=== PATIENT | male | born 1935 | race Caucasian/White ===

== ENCOUNTER 2016-06-30 05:44 | Inpatient (IN) ==
[2016-06-30] MEDS ORDERED: ONDANSETRON 4 MG/2 ML VIAL IV STA (06:05)
[2016-06-30] MEDS ORDERED: ALUM/MAG/SIMETH/LIDO VISC 1:1 30 ML BOTTLE PO STA (06:05)
[2016-06-30] MEDS ORDERED: METOPROLOL TARTRATE 5 MG/5 ML VIAL IV STA (06:05)
[2016-06-30] MEDS ORDERED: NITROGLYCERIN SL 0.4 MG TABLET SL PRN ×2 (06:05→15:03)
[2016-06-30] MEDS ORDERED: MORPHINE 2 MG/1 ML SYRINGE IV STA (06:05)
[2016-06-30] MEDS ORDERED: ENOXAPARIN 100 MG/ML SYRINGE SUBCUT STA (06:05)
[2016-06-30] MEDS ORDERED: NITROGLYCERIN 2% OINT 1 INCH/GM PACK TOP STA (06:05)
[2016-06-30] MEDS ORDERED: ASPIRIN 325 MG TABLET PO STA (06:05)
[2016-06-30] MEDS ORDERED: VECURONIUM 10 MG VIAL IV ONE (06:14)
[2016-06-30 06:15] LABS: Basophils % 0.4 % (0.0-0.8); Eosinophils # 0.5 10*3/uL (0.0-0.87); Eosinophils % 6.4 % (0.00-10.9); Hematocrit 48.8 VOL% (42.0-52.0); Hemoglobin 16.1 GM/DL (14.0-18.0); Immature Granulocytes % 0.5 %; Immature Granulocytes Absolute 0.04 #; Lymphocytes # 1.7 10*3/uL (1.4-4.0); Lymphocytes % 20.2 % (21.2-54.2); Mean Corpuscular Hemoglobin 29 PG (27-34); Mean Corpuscular Volume 88.6 FL (87-102); Monocytes # 0.8 10*3/uL (0.11-0.8); Monocytes % 8.9 % (1.7-12.7); Neutrophils # 5.3 10*3/uL (1.4-7.4); Neutrophils % 63.6 % (38.7-73.9); Platelet Count 156 T/CUMM (130-400); Red Blood Count 5.51 MC/CUMM (3.8-5.5); Red Cell Distribution Width 13.7 % (9.3-17.3); White Blood Count 8.4 T/CUMM (4-12)
--- NOTE | 2016-06-30 06:23 | Emergency Department Note ---
Татьяна Briceno Brittany, am scribing for, and in the presence of, Julian Randall MD 06: 13. Tonia Briceno James D, MD, personally performed the services described in this documentation, ascribed by Mayra Vaz in my presence, and it is both accurate and complete 621 . Arrival - Arrival Chief Complaint: Chest Pain Stated Complaint: chest pain ED Nursing Triage Note: Pt to triage via wheelchair with c/o chest pain that started this morning and woke him up from his sleep. Pt also c/o sob and nausea. Pt took nitro sublingual before coming to ER states it did relieve the pain a little. Mode of Arrival: Wheelchair Limitations: No Limitations Source: Patient, Family Time Seen by Provider: 06/30/16 06:01 - History of Present Illness HPI Narrative: This is a 80 y/o white male,who presents to the ED for further evulation of CP which started earlier this morning. He localizes the pain to the mid sternum. He reports he is slightly nauseated and diaphoretic. He reports he is SOB with the chest pain. He denies any radiation of the chest pain. He reports he took Nitro which helped. Pt denies any hematochezia, hematemesis, or melena. Pt has no other complaints/pain in the ED at this time. Pt has a PMHx of CAD, HI, diabetes, HTN, dyslipidemia, GERD, kidney stones, and cancer. Pt has had a femoral popliteal bypass graft, cardiac cath, cardiac surgery, eye surgery, colonoscopy, and EGD. Pt has a family medical Hx of cancer and heart disease. Pt is a former smoker. He states his last heart cath was 5 months ago. Onset (ago): minute(s) (Started earlier this morning) Consistency: constant Severity: moderate Allergies/Adverse Reactions: Allergies Allergy/AdvReac Type Severity Reaction Status Date / Time No Known Allergies Allergy Verified 06/30/16 05:51 Home Medications: Home Medications Medication Instructions Recorded Confirmed Type Amitriptyline [Elavil] 25 mg PO BEDTIME 05/20/15 06/30/16 History Aspirin EC Tab 81 mg PO DAILY 05/20/15 06/30/16 History Ergocalciferol (Vitamin D2) 2,000 unit PO BID 05/20/15 06/30/16 History [Vitamin D2] Magnesium Chloride [Slow Mag] 64 mg PO BID 05/20/15 06/30/16 History Pantoprazole Tab [Protonix Tab] 40 mg PO BID 05/20/15 06/30/16 History Potassium Chloride 10 meq PO DAILY 05/20/15 06/30/16 History Rosuvastatin [Crestor] 10 mg PO BEDTIME 05/20/15 06/30/16 History Ticagrelor [Brilinta] 90 mg PO BID 05/20/15 06/30/16 History Isosorbide Mononitrate [Imdur] 15 mg PO DAILY #30 tablet 12/26/15 06/30/16 Rx Nitroglycerin Sl Tab [Nitrostat] 0.4 mg SL Q5M PRN #30 tablet 12/26/15 06/30/16 Rx Review of System - Review of System 12 point system: reviewed and no additional remarkable complaints except as stated - Review of System Constitutional: Present: diaphoresis Cardiovascular: Present: chest pain, other (Dyspnea) Gastrointestinal: Present: nausea. Absent: hematemesis, melena, hematochezia Medical,Surgical,& Family Hx - Medical History Cardio: History of: CAD, Hypertension, HI, Cardiovascular Problems No history of: Aneurysm, Cardiac Dysrhythmia, Cerebrovascular Disease, Congenital Heart Disease, CHF, Pacemaker, PVD, Valvular Heart Disease Psychological: No history of: Anxiety Disorders, ADHD, Behavior Problems, Bipolar Disorder, Depression, Previous Suicide Attempt, Psychiatric/Substance Abuse Tx, Schizophrenia, Violent Behavior, Psychiatric Problems Neurology: No history of: Brain Aneurysm, Cerebral Hemorrhage, Cerebrovascular Accident , Cerebral Palsy, Dementia, Migraine, Multiple Sclerosis, Parkinson's Disease, Peripheral Neuropathy, Seizures, TIA, Vertigo, Neurologocal Cancer HEENT: History of: Eye Problem (cataracts removed on 05/21/15), Dental Problems ( dentures- upper and lower) No history of: Ear Problem, Glaucoma, Oral Cancer, HEENT Problems Endocrine: History of: Dyslipidemia No history of: Adrenal Disease, Diabetes Mellitus (IDDM), Diabetes Mellitus ( NIDDM), Thyroid Disorder, Endocrine Cancer, Endocrine Problems Rheumatology: No history of;: Fibromyalgia, Gout, Myasthenia Gravis, Psoriasis, Rheumatoid Arthritis, Sjogrens, Systemic Lupus Erythematosus, Rheumatological Problems Respiratory: History of: Intubation (during bypass surgery) No history of: Asthma, Bronchitis, COPD, Obstructive Sleep Apnea, Pulmonary Embolism, Pulmonary Hypertension, Pneumonia, Lung Cancer, Respiratory Problems Renal: No history of: Renal (Kidney) Cancer, Dialysis, Renal Failure, Renal Problems Genitourinary: History of: Kidney Stones No history of: Bladder Problem, Prostate Problems, Recurring Urinary Tract Infections, Genitourinary Cancer, Problems Gastrointestinal: History of: GERD No history of: Bowel Obstruction, Clostridium Difficile, Crohn's Disease, Diverticulitis/ Diverticulosis, Esophageal Varices, Gastrointestinal Bleed, Hemorrhoids, Hematochezia, Hepatitis, Liver Problems, Pancreatitis, Polyps, Ulcerative Colitis, Gastrointestinal Cancer, GI Problems Musculoskeletal: No history of: Amputation, Back/Neck Problems, Degenerative Disk Disease, Herniated Disk, Osteoporosis, Musculoskeletal Cancer, Musculoskeletal Problems Hematology: No history of: Anemia, Blood Transfusion Reaction, Bleeding Problems, Clotting Problems, Sickle Cell Disease, Hematologic Cancer, Blood Disorders Reproductive: No histroy: Penile Disorder, Sexually Transmitted Disease, Reproductive Cancer, Reproductive Problems Other: History of: Cancer (area removed from chest in 2012) No history of: Anesthesia Reactions, Anaphylaxis, Eczema, HIV, Malignant Hyperthermia, MRSA, Vancomycin-Resistant Enterococci, Skin Problems, Miscellaneous Medical Problems - Surgical History Cardiac Surgeries: Sugical HX of: Femoral-Popliteal Bypass Graft (1997), Cardiac Catheterization, Cardiac Surgery Patient Denies: Carotid Endarterectomy, Internal Defibrillator, Vascular Access Devices Thoracic Surgeries: Patient denies;: Kidney (Renal Surgery), Lithotripsy, Nephrectomy, Organ Transplant, Lobectomy Neurologic Surgeries: Patient denies: Brain Aneurysm, Cerebral Hemorrhage, Neurologic Surgery HEENT Surgeries: Surgical HX of: Eye Surgery (cataracts removed bilat) Patient denies: Carotid Endarterectomy, Thyroid Surgery, Tonsilectomy & Adenoidectomy Abdominal Surgeries: Surgical HX of: Colonoscopy (3-4 polyps removed), EGD Patient denies: Abdominal Surgery, Appendectomy, Cholecystectomy, Gastric Bypass Surgery, Hernia Repair, Splenectomy Reproductive Surgeries: Patient denies;: Breast Surgery, Cystoscopy, Genitourinary Surgery, Prostate Surgery, Vasectomy Orthopedic Surgeries: Patient denies;: Implanted Devices, Orthopedic Surgery, Spinal Surgery, Total Hip Replacement, Total Knee Replacement - Family History Family History: Reports;: Family Cancer (MOTHER), Family Heart Disease (FATHER) - Social History Smoking Status: Former smoker Frequency of Alcohol Use: None Type of Drug Use: None Exam Vital Signs: Vital Signs Temperature 97.9 F 06/30/16 05:55 Pulse Rate 94 H 06/30/16 05:55 Respiratory Rate 18 06/30/16 05:55 Blood Pressure 139/99 06/30/16 05:55 O2 Sat by Pulse Oximetry 91 L 06/30/16 05:46 Course - Consultations Consultation #1: Discussed with Dr. Best. Patient will be admitted to his service. Initial orders written for him. Dr. Best will assume care upon arrival to [facility]. Time: 06:46 Results - Labs CBC & BMP: 06/30/16 05:58 06/30/16 05:58 Lab Results: I have reviewed the patients labs Labs: Laboratory Tests 06/30/16 05:58 INR 1.0 Laboratory Tests 06/30/16 05:58 Troponin I < 0.015 - EKG EKG results: interpreted by ERMD - Impressions EKG: Normal sinus rhythm with a rate of 94, left anterior fascicular block, nonspecific ST-T wave changes, left axis deviation - Diagnostic Findings Procedure: Chest x-ray: image reviewed by me (Increased pulmonary markings bilaterally. Small pleural effusions. Old median sternotomy) Disposition Clinical Impression: Unstable angina, Coronary artery disease, Pulmonary fibrosis, Carotid artery disease Case discussed with: patient, patient's family Disposition: Still a Patient Condition: Stable Time of Disposition: 07:07
[2016-06-30 06:24] LABS: PT Patient Result 10.1 SECS; Partial Thromboplastin Time 27.1 SECS (0-40)
[2016-06-30] MEDS ORDERED: ENOXAPARIN 100 MG/ML SYRINGE SUBCUT ONE (06:24)
[2016-06-30] MEDS ORDERED: ALUM/MAG/SIMETH/LIDO VISC 1:1 30 ML BOTTLE PO ONE (06:25)
[2016-06-30] MEDS ORDERED: METOPROLOL TARTRATE 5 MG/5 ML VIAL IV ONE (06:25)
[2016-06-30] MEDS ORDERED: ONDANSETRON 4 MG/2 ML VIAL ONE (06:25)
[2016-06-30] MEDS ORDERED: MORPHINE 2 MG/1 ML SYRINGE ONE (06:25)
[2016-06-30] MEDS ORDERED: NITROGLYCERIN 2% OINT 1 INCH/GM PACK TOP ONE (06:25)
[2016-06-30] MEDS ORDERED: ASPIRIN 325 MG TABLET ONE (06:25)
[2016-06-30] MEDS ORDERED: MAGNESIUM SULF RIDER 2 GM in PREMIX 1 EACH IV PRN ×2 (06:36→13:31)
[2016-06-30] MEDS ORDERED: MAGNESIUM SULF RIDER 4 GM in PREMIX 1 EACH IV PRN (06:36)
[2016-06-30 06:50] LABS: Albumin 3.9 G/DL (3.4-5.0); Bilirubin,Total 0.9 MG/DL (0.2-1.0); Calcium 8.6 MG/DL (8.5-10.1); Osmolality,Calculated 283.3 MOS/KG (273-304); Total Protein 6.7 G/DL (6.4-8.3)
--- NOTE | 2016-06-30 07:14 | XRay Report ---
Referring Physician: Julian Randall Exam: XR chest 1V portable Date: June 30, 2016 at 6:07 AM Reason: Chest pain Comparison: Chest one view portable December 25, 2015, CT chest high-resolution July 07, 2015 Findings: There is borderline cardiomegaly, and the patient is status post sternotomy. There are scattered opacities within the mid and lower lung zones bilaterally. This is concerning for fibrosis/interstitial lung disease, considering the appearance on the previous CT chest. However, superimposed pneumonia or pulmonary edema cannot be excluded. No pneumothorax is identified, but there may be minimal bilateral pleural fluid. The osseous structures appear stable. No acute osseous process is seen. Impression: There are scattered opacities within the mid and lower lung zones bilaterally. Similar findings are seen on previous studies, and this is concerning for fibrosis/interstitial lung disease. However, superimposed pulmonary edema or pneumonia cannot be excluded. PROCEDURE INTERPRETED AT [facility] DEPARTMENT OF RADIOLOGY Final Report Signed by: Dr. Micaela Piedra
--- NOTE | 2016-06-30 08:41 | EKG Report ---
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
[2016-06-30] MEDS: SODIUM CHLORIDE 0.9% 1,000 ML IV SCH (09:00)
--- NOTE | 2016-06-30 09:16 | EKG Report ---
Stationary ECG Study 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
--- NOTE | 2016-06-30 12:25 | EKG Report ---
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
[2016-06-30] MEDS ORDERED: DIAZEPAM 5 MG TABLET PO ONE (13:31)
[2016-06-30] MEDS ORDERED: diphenhydrAMINE CAP 25 MG CAPSULE PO ONE (13:31)
[2016-06-30] MEDS ORDERED: POTASSIUM CHLORIDE RIDER 10 MEQ in PREMIX 1 EACH IV PRN (13:31)
--- NOTE | 2016-06-30 13:39 | Cardiology History & Physical ---
Mikel Briceno Vanessa, RN, am scribing for, and in the presence of, Layton Best MD 13:36. Assessment and Plan - Time spent with patient Time spent with patient: Greater than 30 minutes (Due to assessment, planning, documentation, and medication review) (1) Unstable angina Status: Acute Assessment and plan: We will aggressively manage his cornea artery disease both medically and with cardiac catheterization for definitive coronary artery assessment and possible revascularization. 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 XAVIER BEST PCP: Mr. Cast is a 80 year old white male past medical history of hypertension, diabetes, hyperlipidemia, CAD, CABG 4, GERD, and depression. He is well-known to me. He has a history of multiple episodes of unstable angina requiring percutaneous coronary intervention since his bypass surgery. Patient reports that couple nights ago he had some chest discomfort symptoms similar to his previous angina. The following day he felt better. Then last night he had worse symptoms. There was a substernal chest pressure. The symptoms were moderate in severity. He had some associated diaphoresis and nausea. He has had some dyspnea as well. He denies any palpitations or syncope. There was no radiation of the symptoms. He did use nitroglycerin which helped his symptoms. Since arrival in the hospital he is continue to have episodic mild low-grade substernal chest discomfort. He has not had any orthopnea or PND, though his says when they first picked him up to pulse oximetry on arrival in the hospital his oxygen saturations were less than 90%. This immediately improved with supplemental oxygen. He has not had any long trips, immobilization, or peripheral edema suggestive of deep venous thrombosis. In light of his extensive cardiac history and persistent/recurrent symptoms, think would be best to admit him, and work him up with cardiac catheterization. His case was discussed today with Dr. Randall. Current Medications Enoxaparin Sodium (Lovenox) 90 mg SUBCUT Q12H TAMMIE Magnesium Sulfate 2 gm/ Premix 50 mls @ 25 mls/hr IV .PER PROTOCOL PRN; Protocol PRN Reason: Per Protocol Magnesium Sulfate 4 gm/ Premix 100 mls @ 25 mls/hr IV .PER PROTOCOL PRN; Protocol PRN Reason: Per Protocol Sodium Chloride (Ns) 1,000 mls @ 50 mls/hr IV .Q20H TAMMIE Last Admin: 06/30/16 09:00 Dose: 50 mls/hr Nitroglycerin (Nitrostat) 0.4 mg SL Q5M PRN PRN Reason: Chest Pain Home Medications Medication Instructions Recorded Confirmed Type Amitriptyline [Elavil] 25 mg PO BEDTIME 05/20/15 06/30/16 History Aspirin EC Tab 81 mg PO DAILY 05/20/15 06/30/16 History Ergocalciferol (Vitamin D2) 2,000 unit PO BID 05/20/15 06/30/16 History [Vitamin D2] Magnesium Chloride [Slow Mag] 64 mg PO BID 05/20/15 06/30/16 History Pantoprazole Tab [Protonix Tab] 40 mg PO BID 05/20/15 06/30/16 History Potassium Chloride 10 meq PO DAILY 05/20/15 06/30/16 History Rosuvastatin [Crestor] 10 mg PO BEDTIME 05/20/15 06/30/16 History Ticagrelor [Brilinta] 90 mg PO BID 05/20/15 06/30/16 History Nitroglycerin Sl Tab [Nitrostat] 0.4 mg SL Q5M PRN #30 tablet 12/26/15 06/30/16 Rx Albuterol Sulfate [Ventolin HFA] 2 puff INH Q6H PRN 06/30/16 06/30/16 History Isosorbide Mononitrate [Imdur] 7.5 mg PO DAILY 06/30/16 06/30/16 History Nintedanib Esylate [Ofev] 150 mg PO BID 06/30/16 06/30/16 History Sucralfate Liquid [Carafate Liquid] 1 gm PO TIDAC 06/30/16 06/30/16 History Allergies Allergy/AdvReac Type Severity Reaction Status Date / Time No Known Allergies Allergy Verified 06/30/16 05:51 12 point system: reviewed and no additional remarkable complaints except as stated Medical,Surgical,& Family Hx - Medical History Cardio: History of: CAD, Hypertension, OR, Cardiovascular Problems No history of: Aneurysm, Cardiac Dysrhythmia, Cerebrovascular Disease, Congenital Heart Disease, CHF, Pacemaker, PVD, Valvular Heart Disease Psychological: No history of: Anxiety Disorders, ADHD, Behavior Problems, Bipolar Disorder, Depression, Previous Suicide Attempt, Psychiatric/Substance Abuse Tx, Schizophrenia, Violent Behavior, Psychiatric Problems Neurology: No history of: Brain Aneurysm, Cerebral Hemorrhage, Cerebrovascular Accident , Cerebral Palsy, Dementia, Migraine, Multiple Sclerosis, Parkinson's Disease, Peripheral Neuropathy, Seizures, TIA, Vertigo, Neurologocal Cancer HEENT: History of: Eye Problem (cataracts removed on 05/21/15), Dental Problems ( dentures- upper and lower) No history of: Ear Problem, Glaucoma, Oral Cancer, HEENT Problems Endocrine: History of: Dyslipidemia No history of: Adrenal Disease, Diabetes Mellitus (IDDM), Diabetes Mellitus ( NIDDM), Thyroid Disorder, Endocrine Cancer, Endocrine Problems Rheumatology: No history of;: Fibromyalgia, Gout, Myasthenia Gravis, Psoriasis, Rheumatoid Arthritis, Sjogrens, Systemic Lupus Erythematosus, Rheumatological Problems Respiratory: History of: Intubation (during bypass surgery) No history of: Asthma, Bronchitis, COPD, Obstructive Sleep Apnea, Pulmonary Embolism, Pulmonary Hypertension, Pneumonia, Lung Cancer, Respiratory Problems Renal: No history of: Renal (Kidney) Cancer, Dialysis, Renal Failure, Renal Problems Genitourinary: History of: Kidney Stones No history of: Bladder Problem, Prostate Problems, Recurring Urinary Tract Infections, Genitourinary Cancer, Problems Gastrointestinal: History of: GERD No history of: Bowel Obstruction, Clostridium Difficile, Crohn's Disease, Diverticulitis/ Diverticulosis, Esophageal Varices, Gastrointestinal Bleed, Hemorrhoids, Hematochezia, Hepatitis, Liver Problems, Pancreatitis, Polyps, Ulcerative Colitis, Gastrointestinal Cancer, GI Problems Musculoskeletal: No history of: Amputation, Back/Neck Problems, Degenerative Disk Disease, Herniated Disk, Osteoporosis, Musculoskeletal Cancer, Musculoskeletal Problems Hematology: No history of: Anemia, Blood Transfusion Reaction, Bleeding Problems, Clotting Problems, Sickle Cell Disease, Hematologic Cancer, Blood Disorders Reproductive: No histroy: Penile Disorder, Sexually Transmitted Disease, Reproductive Cancer, Reproductive Problems Other: History of: Cancer (area removed from chest in 2012) No history of: Anesthesia Reactions, Anaphylaxis, Eczema, HIV, Malignant Hyperthermia, MRSA, Vancomycin-Resistant Enterococci, Skin Problems, Miscellaneous Medical Problems - Surgical History Cardiac Surgeries: Sugical HX of: Femoral-Popliteal Bypass Graft (1997), Cardiac Catheterization, Cardiac Surgery Patient Denies: Carotid Endarterectomy, Internal Defibrillator, Vascular Access Devices Thoracic Surgeries: Patient denies;: Kidney (Renal Surgery), Lithotripsy, Nephrectomy, Organ Transplant, Lobectomy Neurologic Surgeries: Patient denies: Brain Aneurysm, Cerebral Hemorrhage, Neurologic Surgery HEENT Surgeries: Surgical HX of: Eye Surgery (cataracts removed bilat) Patient denies: Carotid Endarterectomy, Thyroid Surgery, Tonsilectomy & Adenoidectomy Abdominal Surgeries: Surgical HX of: Colonoscopy (3-4 polyps removed), EGD Patient denies: Abdominal Surgery, Appendectomy, Cholecystectomy, Gastric Bypass Surgery, Hernia Repair, Splenectomy Reproductive Surgeries: Patient denies;: Breast Surgery, Cystoscopy, Genitourinary Surgery, Prostate Surgery, Vasectomy Orthopedic Surgeries: Patient denies;: Implanted Devices, Orthopedic Surgery, Spinal Surgery, Total Hip Replacement, Total Knee Replacement - Family History Family History: Reports;: Family Cancer (MOTHER), Family Heart Disease (FATHER) - Social History Smoking Status: Former smoker Frequency of Alcohol Use: None Type of Drug Use: None Cardiology Physical Exam - Constitutional Vitals: Vital Signs Temp Pulse Resp BP Pulse Ox 98.0 F 82 16 110/75 98 06/30/16 10:04 06/30/16 10:04 06/30/16 10:04 06/30/16 10:04 06/30/16 10:04 Intake and Output 06/29/16 06/30/16 06/30/16 22:59 06:59 14:59 Other: Weight 188 lb 14.4 oz Patient Weight 07/01/16 06:59 Weight 188 lb 14.4 oz Exam: General: Appears well developed, well nourished, no apparent distress HEENT: Normocephalic, atraumatic Neck: Supple Neck, Midline Trachea, No JVD Cardiac: Reg Rate and Rhythm, 2/6 systolic Murmur, no gallop, no rub Lungs: Clear to auscultation, No Wheeze, Rales, Rhonchi Neuro: Cranial Nerve 2-12 Intact, Motor Function Grossly Intact Abdomen: Soft, Active Bowel Sounds, No Masses, No Pulsations/Bruits Skin: Normal color, no rash Extremities: No Clubbing, No Cyanosis, No Edema, Normal Upper Extr. Pulses Musculoskeletal: No acute abnormality noted Psychiatric: The patient does not appear to be anxious or depressed Result/EKG - Labs CBC & BMP: 06/30/16 05:58 06/30/16 05:58 Lab Results: I have reviewed the past 24 hour labs Labs: Laboratory Results - last 24 hr 06/30/16 09:18 Troponin I < 0.015 - Diagnostic Findings Procedure: Chest x-ray: image reviewed by me, report reviewed by me - EKG EKG results: interpreted by me I, Layton Best MD, personally performed the services described in this documentation, ascribed by Shirley Morin RN in my presence, and it is both accurate and complete 338 .
[2016-06-30] MEDS ORDERED: LIDOCAINE 1% 20 ML VIAL ONE (13:40)
[2016-06-30] MEDS ORDERED: HEPARIN/NACL 0.9% 2 UNITS/ML 1,000 ML IV ONE (13:40)
[2016-06-30 14:00] LABS: Apearance,Urine CLEAR (Clear); Bilirubin,Urine Negative (Negative); Blood, Urine Small mg/dL (Negative); Glucose,Urine (UA) Negative (Negative); Ketones,Urine Negative (Negative); Mucus,Urine Occasional /LPF (Occasional); Nitrite,Urine Negative (Negative); Protein,Urine Negative; RBC,Urine 4 /HPF (0-4); Urine Color Yellow (Yellow); Urine Specific Gravity 1.011 (1.001-1.035); Urine Urobilinogen < 2.0 EU/DL (0.2-1.0); WBC,Urine 15 /HPF (0-6)
[2016-06-30] MEDS ORDERED: HYDROmorphone 2 MG/1 ML VIAL ONE (14:15)
[2016-06-30] MEDS ORDERED: MIDAZOLAM 2 MG/2 ML VIAL ONE (14:15)
[2016-06-30] MEDS ORDERED: TICAGRELOR 90 MG TABLET ONE (14:39)
--- NOTE | 2016-06-30 15:07 | Cardiac Catheterization ---
Date of Procedure:: 06/30/16 Procedure: CLINICAL SUMMARY: The patient has known multivessel coronary artery disease and presented with unstable angina symptoms. He is being taken for cardiac catheterization for definitive coronary artery assessment and possible revascularization. PROCEDURES PERFORMED: 1. Right femoral percutaneous arteriotomy 2. Resting hemodynamics. 3. Coronary arteriography. 4. Selective left internal mammary coronary artery bypass graft angiography. 5. Right femoral arteriogram. 6. Angio-Seal closure of the right femoral artery. 7. Percutaneous coronary intervention to the right posterolateral branch with a 2.5 x 8 mm Synergy drug-eluting stent. DESCRIPTION OF PROCEDURE: After obtaining informed consent, the patient was brought to the cardiac catheterization lab where the right groin was prepped and draped in the usual sterile manner. Using IV sedation, local anesthesia, and Modified Seldinger technique, a needle was placed in the right femoral artery and a sheath was positioned without difficulty. A left coronary catheter was advanced over a guidewire under fluoroscopic control to the ascending aorta where angiograms of the left coronary artery were undertaken in multiple views. After adequate angiograms, this catheter was withdrawn and a right coronary catheter was advanced over a guidewire under fluoroscopic control to the ascending aorta with angiograms of the RCA were undertaken in numerous projections. After angiography of the right coronary artery this catheter was used to perform left internal mammary to left anterior descending coronary artery angiogram. After the diagnostic portion of the case was completed with proceeded directly to percutaneous coronary intervention. We engaged the right coronary artery with a JR4 interventional guide and passed PT Graphix wire beyond the area of stenosis in the distal vessel. We then performed balloon angioplasty with a 2.5 x 8 mm trach antiplastic balloon. We then placed a 2.5 x 8 mm Synergy drug-eluting stent into the right posterolateral branch at the site of high-grade stenosis. Follow-up angiography showed significant improvement with no significant residual stenosis. After the intervention, a right femoral arteriogram was performed showing adequate sheath placement for closure device deployment. The sheath was then removed and an Angio-Seal device was used to obtain hemostasis. The patient was transferred back to the room having suffered no immediate complications. HEMODYNAMICS: See the accompanying data sheet. CORONARY ARTERIOGRAPHY: LEFT MAIN: The left main coronary artery is a large caliber vessel, which at this time only gives rise to the left circumflex and obtuse marginal branch, as the left anterior descending coronary artery is completely occluded at its origin. The left main coronary artery has no significant obstructive disease. LEFT CIRCUMFLEX: The left circumflex coronary artery is a moderate size vessel which gives off a moderate size obtuse marginal branch. There is a stent in the proximal segment of the circumflex coronary artery which is widely patent. LEFT ANTERIOR DESCENDING: The left anterior descending artery is occluded at its origin from the left main coronary artery. The distal vessel is seen filling via patent left internal mammary arterial graft. There is moderate diffuse disease in the [place] left anterior setting coronary artery. RIGHT CORONARY ARTERY: The right coronary artery is a moderate size vessel which gives off posterior descending artery and a posterolateral system. There is diffuse [id number] luminal irregularities throughout the right coronary artery. There are multiple stents present throughout the right coronary artery. In the distal right posterolateral branch there is a focal stenosis of 80-90%. PERIPHERAL ARTERIOGRAPHY: Right femoral arteriogram shows a normal right iliofemoral artery with adequate sheath placement for closure device deployment. IMPRESSIONS: 1. Successful percutaneous coronary intervention to the right posterolateral branch with a 2.5 x 8 mm Synergy drug-eluting stent. 2. Severe [place] three-vessel coronary artery disease in other distributions. However, I don't see any other high-grade disease that would be a good target for revascularization. 3. Patent left internal mammary artery to left anterior descending coronary artery bypass graft. 4. 2 saphenous vein grafts are known to be occluded. 5. Normal right iliofemoral artery with successful and distal closure of this vessel. PLAN: Patient will transferred back to his room for recovery. He did well with percutaneous intervention on his right posterolateral branch. We will continue aggressive medical management as well. If he does well overnight he could possibly be discharged home tomorrow. Anesthesia: minimal conscious sedation Surgeon / Physician: Layton Best Estimated blood loss: minimal Condition: stable Disposition: floor - Medications / Follow-up
[2016-06-30] MEDS ORDERED: ALBUTEROL 2.5 MG/3 ML NEB RESP TX PRN (15:30)
[2016-06-30] MEDS: SUCRALFATE 1 GM/10 ML UDCUP PO SCH (17:28)
[2016-06-30] MEDS: ENOXAPARIN 100 MG/ML SYRINGE SUBCUT SCH (18:26)
[2016-06-30] MEDS: MAGNESIUM CHLORIDE 64 MG TABLET PO SCH (20:51)
[2016-06-30] MEDS: CHOLECALCIFEROL 1,000 UNIT TABLET PO SCH (20:51)
[2016-06-30] MEDS: TICAGRELOR 90 MG TABLET PO SCH (20:51)
[2016-06-30] MEDS: NINTEDANIB ESYLATE 150 MG PO SCH ×2 (20:52→21:04)
[2016-06-30] MEDS: PANTOPRAZOLE 40 MG TABLET PO SCH (20:52)
[2016-06-30] MEDS ORDERED: ROSUVASTATIN 20 MG TABLET PO SCH (21:00)
[2016-06-30] MEDS ORDERED: AMITRIPTYLINE 25 MG TABLET PO SCH (21:00)
[2016-07-01] MEDS: SUCRALFATE 1 GM/10 ML UDCUP PO SCH (06:44)
[2016-07-01] MEDS: SODIUM CHLORIDE 0.9% 1,000 ML IV SCH (06:45)
[2016-07-01] MEDS: ENOXAPARIN 100 MG/ML SYRINGE SUBCUT SCH (06:45)
[2016-07-01 06:50] LABS: Basophils % 0.4 % (0.0-0.8); Eosinophils # 0.5 10*3/uL (0.0-0.87); Eosinophils % 5.8 % (0.00-10.9); Hematocrit 45.2 VOL% (42.0-52.0); Hemoglobin 14.7 GM/DL (14.0-18.0); Immature Granulocytes % 0.4 %; Immature Granulocytes Absolute 0.03 #; Lymphocytes # 0.9 10*3/uL (1.4-4.0); Lymphocytes % 11.7 % (21.2-54.2); Mean Corpuscular HGB Conc 32.5 GM/DL (32-36); Mean Corpuscular Hemoglobin 29 PG (27-34); Mean Corpuscular Volume 89.3 FL (87-102); Mean Platelet Volume 9.2 FL (9.6-12.0); Monocytes # 0.7 10*3/uL (0.11-0.8); Monocytes % 8.3 % (1.7-12.7); Neutrophils # 5.8 10*3/uL (1.4-7.4); Neutrophils % 73.4 % (38.7-73.9); Platelet Count 150 T/CUMM (130-400); Red Blood Count 5.06 MC/CUMM (3.8-5.5); Red Cell Distribution Width 13.5 % (9.3-17.3)
[2016-07-01 07:25] LABS: Blood Urea Nitrogen 11 MG/DL (7-18); Calcium 8.7 MG/DL (8.5-10.1); Glucose 103 MG/DL (74-106); Osmolality,Calculated 277.4 MOS/KG (273-304); Potassium 4.2 MMOL/L (3.5-5.1); Sodium 140 MMOL/L (136-145)
[2016-07-01 07:26] LABS: Troponin I Only 0.135 NG/ML (0.00-0.045)
--- NOTE | 2016-07-01 07:47 | EKG Report ---
Stationary ECG Study [facility] Test Date: 07/01/2016 7:48:24 AM Pat Name: EMELINA JENKINS Department: Room: 544 Gender: M Reserve Operator: YOMI : [id number] Requested by: Fariba Traylor Order Number: [id number] Reading MD: BRUCE KENNY Intervals [place] Rate: 77 P: 76 WI: 194 QRS: -67 QRSD: 112 T: 73 QT: 427 QTc: 459 Interpretive Statements SINUS RHYTHM POOR R-WAVE PROGRESSION LEFT ANTERIOR FASCICULAR BLOCK Electronically Signed On 07-01-16 17:56:47 CDT by BRUCE KENNY [email or web address]
[2016-07-01 08:00] VITALS: BP 132/72
[2016-07-01] MEDS: TICAGRELOR 90 MG TABLET PO SCH (08:51)
[2016-07-01] MEDS: MAGNESIUM CHLORIDE 64 MG TABLET PO SCH (08:51)
[2016-07-01] MEDS: PANTOPRAZOLE 40 MG TABLET PO SCH (08:51)
[2016-07-01] MEDS: CHOLECALCIFEROL 1,000 UNIT TABLET PO SCH (08:51)
[2016-07-01] MEDS: NINTEDANIB ESYLATE 150 MG PO SCH (08:56)
[2016-07-01] MEDS ORDERED: ASPIRIN EC 81 MG TABLET PO SCH (09:00)
[2016-07-01] MEDS ORDERED: POTASSIUM CHLORIDE 10 MEQ TABLET PO SCH (09:00)
[2016-07-01] MEDS ORDERED: ISOSORBIDE MONONITRATE 30 MG TABLET PO SCH (09:00)
--- NOTE | 2016-07-01 10:04 | Discharge Summary ---
I, Shirley Morin RN, am scribing for, and in the presence of, Layton Best MD 10:03. 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 XAVIER BEST Mr. Cast is a 80-year-old white male past medical history of hypertension, diabetes, hyperlipidemia, CAD, CABG 4, GERD, and depression. He is very well known to me. He has had a history of multiple episodes of unstable angina requiring percutaneous coronary intervention since his bypass surgery. Patient presented to the emergency room on the morning of 06/30/16 with complaints that a few days prior to presentation he had some chest discomfort symptoms similar to his previous angina. The evening before presentation and on the morning of, his symptoms worsened. He had substernal chest pressure that was moderate in severity, and it was associated with diaphoresis, nausea, and some dyspnea. Did not have any palpitations or syncope. There was no radiation of his discomfort patient did use nitroglycerin to help relieve his symptoms. After admission to the hospital for observation, he continued to have episodic mild low-grade substernal chest discomfort. He had not experienced any recent or current orthopnea or PND. His twelve-lead EKG was without acute ST segment changes. There was concern due to patient initially having a oxygen saturation a little less than 90% upon arrival to the ER O2 saturation immediately improved with supplemental oxygen. With his extensive cardiac history and persistent/recurrent symptoms, he was taken to cardiac catheterization lab yesterday for definitive coronary artery assessment and possible revascularization. Cardiac catheterization with the following findings: IMPRESSIONS: 1. Successful percutaneous coronary intervention to the right posterolateral branch with a 2.5 x 8 mm Synergy drug-eluting stent. 2. Severe [place] three-vessel coronary artery disease in other distributions. However, I don't see any other high-grade disease that would be a good target for revascularization. 3. Patent left internal mammary artery to left anterior descending coronary artery bypass graft. 4. 2 saphenous vein grafts are known to be occluded. 5. Normal right iliofemoral artery with successful and distal closure of this vessel. PLAN: Patient will transferred back to his room for recovery. He did well with percutaneous intervention on his right posterolateral branch. We will continue aggressive medical management as well. If he does well overnight he could possibly be discharged home tomorrow. Patient is now seen and examined this morning status post left heart catheterization with percutaneous coronary intervention. He has done well overnight without any further chest discomfort, dyspnea, nausea, or other overt anginal complaint. Right groin cath site area is soft without bruise, hematoma, or femoral bruit appreciated. Lower extremity pulses are present and palpable bilaterally. EKG this morning is without acute finding. Labs reviewed. Electrolytes are within acceptable range. Renal function is stable with a creatinine of 0.9 and a GFR of 99. Trivial troponin on this morning's lab work of 0.135, and can be contributed to recent angina with percutaneous coronary intervention. Patient has now reached maximum hospitalization benefit, and he is ready for discharge home. He will be discharged home today. He will be given a follow-up with me in 2 weeks at [facility]. He will also need a BMP, magnesium level, and EKG. He will resume his previously taken home medications. - Time spent with patient Time with patient DS: Greater than 30 minutes (Due to assessment, documentation , and medication reconciliation) Diagnosis - Discharge Diagnosis (1) Unstable angina Status: Resolved (2) CAD (coronary artery disease) Status: Resolved (3) Essential (primary) hypertension Status: Chronic (4) Pulmonary fibrosis Status: Chronic Specialty Discharge - Follow Up or Referrals Follow up with: Layton Best MD [Primary Care Provider] - 2 Weeks (He will need a BMP and magnesium level. He will also need an EKG.) Discharge Plan - Discharge Data Disposition: Disch To Home/Self Care Condition at Discharge: Stable Discharge Diet: heart healthy, low fat, low cholesterol, low salt diet Activity: other (Routine post cardiac cath instruction) Hygiene: may shower Weight Bearing at Discharge: full weight bearing Driving: not for (1 week) Contact your physician if you experience:: fever over 101, Difficulty voiding, Redness or swelling, Nausea/Vomiting, Shortness of breath, Bleeding, pain uncontrolled by pain medications - Discharge Medications Continue Potassium Chloride 10 meq PO DAILY Pantoprazole Tab [Protonix Tab] 40 mg PO BID Ergocalciferol (Vitamin D2) [Vitamin D2] 2,000 unit PO BID Amitriptyline [Elavil] 25 mg PO BEDTIME Rosuvastatin [Crestor] 10 mg PO BEDTIME Magnesium Chloride [Slow Mag] 64 mg PO BID Ticagrelor [Brilinta] 90 mg PO BID Aspirin EC Tab 81 mg PO DAILY Nitroglycerin Sl Tab [Nitrostat] 0.4 mg SL Q5M PRN #30 tablet PRN Reason: Chest Pain Nintedanib Esylate [Ofev] 150 mg PO BID Isosorbide Mononitrate [Imdur] 7.5 mg PO DAILY Sucralfate Liquid [Carafate Liquid] 1 gm PO TIDAC Albuterol Sulfate [Ventolin HFA] 2 puff INH Q6H PRN PRN Reason: Shortness Of Breath/Wheezing - Follow Up or Referral Follow Up: Layton Best MD [Primary Care Provider] - 2 Weeks (He will need a BMP and magnesium level. He will also need an EKG.) - Forms/Instructions Instructions: Angina (DC), Pulmonary Fibrosis (DC) Exam - Constitutional Vitals: Period Temp Pulse Resp BP Sys/Martins Pulse Ox Last 24 Hr 97.7 F-98.6 F 71-83 16-20 108-146/56-87 94-98 Exam: General: Appears well developed, well nourished, no apparent distress HEENT: Normocephalic, atraumatic Neck: Supple Neck, Midline Trachea, No JVD Cardiac: Reg Rate and Rhythm, 2/6 systolic Murmur, no gallop, no rub Lungs: Clear to auscultation, No Wheeze, Rales, Rhonchi Neuro: Cranial Nerve 2-12 Intact, Motor Function Grossly Intact Abdomen: Soft, Active Bowel Sounds, No Masses, No Pulsations/Bruits Skin: Normal color, no rash Extremities: No Clubbing, No Cyanosis, No Edema, Normal Upper Extr. Pulses, normal lower extremity pulses. Other: (Right groin cath site-area is soft without bruise, hematoma, or femoral bruit appreciated.) Musculoskeletal: No acute abnormality noted Psychiatric: The patient does not appear to be anxious or depressed Discharge Results Procedures and tests throughout hospitalization: Pending Orders 06/30/16 Urine Culture Routine 06/30/16 13:34 CL heart Routine Labs on day of discharge: Labs from last 24 hours 07/01/16 07/01/16 06/30/16 06:19 06:19 13:00 WBC 8.0 RBC 5.06 Hgb 14.7 Hct 45.2 MCV 89.3 MCH 29 MCHC 32.5 RDW 13.5 Plt Count 150 MPV 9.2 L Neut % (Auto) 73.4 Lymph % (Auto) 11.7 L [place] % (Auto) 8.3 Eos % (Auto) 5.8 Baso % (Auto) 0.4 Neut # (Auto) 5.8 Lymph # (Auto) 0.9 L [place] # (Auto) 0.7 Eos # (Auto) 0.5 Baso # (Auto) 0.0 Immature Gran % 0.4 Nucleated RBC % 0.0 Immature Gran # 0.03 Nucleated RBCs # 0.00 Sodium 140 Potassium 4.2 Chloride 102 Carbon Dioxide 30 Anion Gap 12.2 BUN 11 Creatinine 0.90 GFR Calculation 99 BUN/Creatinine Ratio 12.00 Glucose 103 Calculated Osmolality 277.4 Calcium 8.7 Total Creatine Kinase 52 CK-MB (CK-2) 1.5 Troponin I 0.135 H D Urine Color Yellow Urine Appearance Clear Urine pH 5.0 Ur Specific Raymond 1.011 Urine Protein Negative Urine Glucose (UA) Negative Urine Ketones Negative Urine Blood Small Urine Nitrate Negative Urine Bilirubin Negative Urine Urobilinogen < 2.0 H Urine Leukocytes Small H Urine RBC 4 Urine WBC 15 Urine Mucus Occasional Ur Culture Indicated? Results to follow 06/30/16 06/30/16 12:12 09:18 WBC RBC Hgb Hct MCV MCH MCHC RDW Plt Count MPV Neut % (Auto) Lymph % (Auto) [place] % (Auto) Eos % (Auto) Baso % (Auto) Neut # (Auto) Lymph # (Auto) [place] # (Auto) Eos # (Auto) Baso # (Auto) Immature Gran % Nucleated RBC % Immature Gran # Nucleated RBCs # Sodium Potassium Chloride Carbon Dioxide Anion Gap BUN Creatinine GFR Calculation BUN/Creatinine Ratio Glucose Calculated Osmolality Calcium Total Creatine Kinase CK-MB (CK-2) Troponin I < 0.015 < 0.015 Urine Color Urine Appearance Urine pH Ur Specific Raymond Urine Protein Urine Glucose (UA) Urine Ketones Urine Blood Urine Nitrate Urine Bilirubin Urine Urobilinogen Urine Leukocytes Urine RBC Urine WBC Urine Mucus Ur Culture Indicated? - Imaging and Cardiology Cardiology Procedure: image reviewed by me DS: Provider Consults: 06/30/16 08:36 Consult to Pharmacy [CONS] Routine Reason for Pharmacy Consult: Adjust Meds Renal Funct Expected date of discharge: 07/01/16 Estephania Briceno Michael, MD, personally performed the services described in this documentation, ascribed by Mikel,Shirley, RN in my presence, and it is both accurate and complete .
== END 2016-07-01 11:43 | disposition home or self-care (01) | DRG 247 ==
LOC: N.ED 05:44 → N.EDINP 06:35 → N.5E 09:40
PROVIDERS: ADMIT Internal Medicine Cardiovascular Disease; ATTEND Internal Medicine Cardiovascular Disease